=== PATIENT | female | born 1975 | race African-American/Black ===

== ENCOUNTER 2019-01-13 12:57 | Emergency (ER) | payer OTHER ==
[2019-01-13 13:10] VITALS: BP 142/87; PULSE 78; TEMP 97.7; BMI 38.4
--- NOTE | 2019-01-13 13:21 | PDOC ---
History of Present Illness - General Chief Complaint: Pain Stated Complaint: INJURY Time Seen by Provider: 01/13/19 13:07 History Source: Patient Exam Limitations: No Limitations - History of Present Illness Initial Comments: 01/13/19 13:23 HISTORY OF PRESENT ILLNESS: 43-year-old woman denies medical history of presents emergency department for evaluation of pain in her right forearm after lifting a patient in bed. 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 Patient describes the pain as a cramping feeling and is unable to rate the pain. No recent travel or sick contacts. PAST MEDICAL HISTORY: Denies past medical history SURGICAL HISTORY: Denies ALLERGIES: No known drug allergies REVIEW OF SYSTEMS General/Constitutional: Denies fever or chills. Denies weakness, weight change. HEENT: Denies change in vision. Denies ear pain or discharge. Denies sore throat. Cardiovascular: Denies chest pain or shortness of breath. Respiratory: Denies cough, wheezing, or hemoptysis. Gastrointestinal: Denies nausea, vomiting, diarrhea or constipation. Denies rectal bleeding. Genitourinary: Denies dysuria, frequency, or change in urination. Musculoskeletal: Denies joint or muscle swelling or pain. Denies neck or back pain. Skin and breasts: Denies rash or easy bruising. Neurologic: Denies headache, vertigo, loss of consciousness, or loss of sensation. Psychiatric: Denies depression or anxiety. Endocrine: Denies increased thirst. Denies abnormal weight change. Hematologic/Lymphatic: Denies anemia, easy bleeding, or history of blood clots. Allergic/Immunologic: Denies hives or skin allergy. Denies latex allergy. PHYSICAL EXAM General Appearance: Well-appearing, appropriately dressed. No apparent distress , no intoxication. Respiratory/Chest: Lungs CTAB. No shortness of breath, chest tenderness, respiratory distress, accessory muscle use. No crackles, rales, rhonchi, stridor , wheezing, dullness Cardiovascular: RRR. S1, S2. No JVD, murmur, bradycardia, tachycardia. Musculoskeletal/Extremities: Normal inspection. FROM of all extremities, normal capillary refill. Pelvis Stable. No CVA tenderness. No tenderness to extremities, pedal edema, swelling, erythema or deformity. Palpable muscle spasm present in the dorsum of the right forearm. NVI. Integumentary: Appropriate color, dry, warm. No cyanosis, erythema, jaundice or rash Past History - Past Medical History Allergies/Adverse Reactions: Allergies Allergy/AdvReac Type Severity Reaction Status Date / Time No Known Allergies Allergy Verified 01/13/19 13:06 Home Medications: Ambulatory Orders Methocarbamol [Robaxin -] 500 mg PO TID #21 tablet 01/13/19 COPD: No HTN: Yes - Suicide/Smoking/Psychosocial Hx Smoking History: Never smoked *Physical Exam - Vital Signs Last Vital Signs Temp Pulse Resp BP Pulse Ox 97.7 F 78 18 142/87 100 01/13/19 13:04 01/13/19 13:04 01/13/19 13:04 01/13/19 13:04 01/13/19 13:04 Medical Decision Making - Medical Decision Making 01/13/19 13:23 A/P: 43-year-old woman with muscle spasm in the right forearm after pulling the patient up in bed Patient is requesting to go back to work presently. I was in the prescription to her preferred pharmacy instruct patient to take Naprosyn for pain. Portions of this note have been documented using voice recognition software. As a result, errors may occur in the daub color mixer process. Effort has been made to correct all grammatical and daub color mixer error, but some may have been missed. *DC/Admit/Observation/Transfer Diagnosis at time of Disposition: Muscle spasm - Discharge Dispostion Disposition: HOME Condition at time of disposition: Stable Decision to Admit order: No - Prescriptions Prescriptions: Methocarbamol [Robaxin -] 500 mg PO TID #21 tablet - Referrals Referrals: Margarita Fay [Primary Care Provider] - - Patient Instructions Additional Instructions: Rest, no heavy lifting or exercise until pain is resolved Hot soaks to affected area as often as possible/hot showers or Jacuzzis No massage or therapy until spasm is gone Continue naproxen 2-220 mg tablets every 12 hours for the next 3 days then as needed for pain and swelling Robaxin 500mg every 8 hours as needed for spasm If not significant improvement within 24 hours with medication and rest regime, followup with private physician for change in medications and /or therapy. - Post Discharge Activity
== END 2019-01-13 13:36 | disposition home or self-care (01) ==
LOC: JER 12:57
DX: S59.811A Other specified injuries right forearm, initial encounter (principal); M62.838 Other muscle spasm; X50.9XXA Other and unspecified overexertion or strenuous movements or postures, initial encounter; Y93.F2 Activity, caregiving, lifting; Y92.122 Bedroom in nursing home as the place of occurrence of the external cause; Y99.0 Civilian activity done for income or pay
CPT/HCPCS: 99281-25

== ENCOUNTER 2019-05-03 21:21 | Emergency (ER) | payer OTHER ==
[2019-05-03 21:26] VITALS: BMI 36.9
[2019-05-03] MEDS ORDERED: SODIUM CHLORIDE 0.9% 500 ML INFUS.BAG IV ONE (21:56)
[2019-05-03] MEDS ORDERED: ONDANSETRON 4 MG/2 ML VIAL IVPUSH ONE (21:56)
[2019-05-03] MEDS ORDERED: MAG HYDROX/AL HYDROX/SIMETH 30 ML UNIT-DOSE CUP PO ONE (21:57)
[2019-05-03] MEDS ORDERED: FAMOTIDINE 20 MG/50 ML IVPB 20 MG/50 ML MG IVPB ONE ×2 (21:57→22:11)
[2019-05-03] MEDS ORDERED: ACETAMINOPHEN 1000 MG/100 ML VIAL (NON FORMULARY) IVPB ONE (21:57)
--- NOTE | 2019-05-03 21:59 | PDOC ---
Documentation entered by Santiago Chaparro SCRIBE, acting as scribe for Rosmery Ruby MD. Rosmery Ruby MD: This documentation has been prepared by the Shankar haji Nirvannie, SCRIBE, under my direction and personally reviewed by me in its entirety. I confirm that the documentation accurately reflects all work, treatment, procedures, and medical decision making performed by me. History of Present Illness - General Chief Complaint: Lightheaded Stated Complaint: DIZZINESS Time Seen by Provider: 05/03/19 21:43 History Source: Patient Exam Limitations: No Limitations - History of Present Illness Initial Comments: 05/03/19 22:41 [id number] with significant past medical history of hypertension who presents to the ED with sudden onset nausea without emesis, burping, and dizziness approximately 1 hour prior to arrival. 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 She notes attempting to drink some ruchi tea and sitting down, without relief, prompting her arrival to the ED. Patient notes an associated intermittent nonproductive cough, nasal congestion, and intermittent sinus pressure for the past week. She notes similar symptoms in the past at which time she was diagnosed with dehydration and symptoms were resolved with Mylanta and IV fluids. Patient is up to date with her flu shot. She denies any visual or hearing disturbances. Denies fever, chills, chest pain , SOB, palpitations, dizziness, weakness, V, D, bladder and bowel problems, leg swelling, No sick contacts or travel. No new changes in medications. Denies any chance of being . Allergies: None Past Medical History: Hypertension Social history: Lives with family. No tobacco, ETOH or drug use. Surgical history: None reported. Meds: as documented in EMR PMD: Dr. Fay Past History - Past Medical History Allergies/Adverse Reactions: Allergies Allergy/AdvReac Type Severity Reaction Status Date / Time No Known Allergies Allergy Verified 05/03/19 21:25 Home Medications: Ambulatory Orders Methocarbamol [Robaxin -] 500 mg PO TID #21 tablet 01/13/19 Ondansetron [Zofran *Odt*] 4 mg SL TID PRN #9 od.tablet 05/03/19 Meclizine HCl [Antivert -] 25 mg PO QID #28 tablet 05/04/19 COPD: No HTN: Yes - Psycho Social/Smoking Cessation Hx Smoking History: Never smoked Review of Systems - Review of Systems Able to Perform ROS?: Yes Comments:: 05/03/19 22:47 Constitutional: no fevers or chills. HEENT: no headache or dizziness. +congestion. No visual/hearing disturbances. CVS: no cp or syncope. Resp: no sob. No cough. Gastrointestinal: +Increased burping. +Nausea. no vomiting. Genitourinary: no urinary sx, hematuria. MUSCULOSKELETAL: No joint pain and swelling. No neck or back pain. SKIN: no redness or skin changes, no discharge, no rash. No wounds. Hematologic: no easy bruising/bleeding. NEUROLOGIC: +Dizziness. No headache, LOC or altered mental status. No weakness, numbness or tingling. Psych: no anxiety or depression Allergic/Immunologic: no allergies All other systems reviewed and negative, or as documented in HPI. *Physical Exam - Vital Signs Last Vital Signs Temp Pulse Resp BP Pulse Ox 97.6 F 88 18 153/82 100 05/03/19 21:24 05/03/19 21:24 05/03/19 21:24 05/03/19 21:24 05/03/19 21:24 - Physical Exam 05/03/19 22:47 General: Well appearing, awake and alert, NAD. HEENT: NCAT, PERRL, EOMI, clear conjunctiva, anicteric, moist mucous membranes , clear oropharynx, no oral lesions. Neck: neck supple, FROM Resp: CTAB, normal and even respirations, no respiratory distress CVS: RRR, no murmurs, 2+ peripheral pulses throughout, no peripheral edema Abdomen: +Obese. soft, NTND, no rebound or guarding. No CVAT. Back: nontender, normal inspection and ROM MSK: no edema, DIAZ x4, ROM intact. No clubbing or cyanosis. normal bulk and tone. Extremities: no calf tenderness Neuro: alert, oriented appropriately; no focal neurologic deficits Skin: warm and well perfused, cap refill <2 sec, normal color Heart Score/ECG Review #1 ECG reviewed & interpreted by me at: 22:50 General ECG Interpretation: Sinus Rhythm, Normal Rate, Normal Intervals Compared to previous ECG there are: Previous ECG unavail 05/03/19 23:06 EKG normal sinus rhythm 81 bpm, no interval abnormalities, narrow QRS, ST and T wave segments and morphology normal. Nonspecific T wave abnormalities 05/03/19 23:06 ED Treatment Course - LABORATORY CBC & Chemistry Diagram: 05/03/19 22:40 05/03/19 22:40 - RADIOLOGY Radiology Studies Ordered: Category Date Time Status CHEST X-RAY PORTABLE* [RAD] Stat Radiology 05/03/19 21:55 Ordered Medical Decision Making - Medical Decision Making 05/03/19 21:58 Vital Signs Temp Pulse Resp BP Pulse Ox 97.6 F 88 18 153/82 100 05/03/19 21:24 05/03/19 21:24 05/03/19 21:24 05/03/19 21:24 05/03/19 21:24 VS reviewed wnl. ddx. vertigo, viral syndrome, pna. influenza. gastritis, PUD, GERD, dehydration , anemia. unlikely polysomnograph tech pathology. neuro intact. no cp or sob. actively nauseous. abdomen soft nontender, obese, +burping Patient is given analgesia, Zofran, Maalox, Pepcid and IV fluids will reassess. labs/lytes, cr, lipase, flu test 05/03/19 Laboratory results are within normal limits, normal H/H no evidence of anemia, lipase and electrolytes/creatinine also within normal limits unlikely to be hepatitis or pancreatitis. Flu is negative. 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 Pt to be discharged in stable condition. Patient made aware of clinical impression, treatment recommendations and disposition plan, return precautions discussed (including but not limited to new or persistent/worsening symptoms, pain, fevers, or signs of infection, chest pain, respiratory distress, inability to tolerate oral intake, dehydration, syncope, or neurologic changes) . Follow up with PMD as recommended, follow up information provided, take medications as instructed for duration of time. continue with supportive care, avoid triggers and precipitants. All questions answered to patient's satisfaction and expressed understanding and comfort with this. At the time of discharge, the patient is alert, clinically improved, tolerating po and verbalizes understanding of instructions, satisfied with the care received and felt comfortable with the plan. Patient does not suffer from an acute life- threatening medical condition at this time and is safe for outpatient follow- up. 05/03/19 23:45 Discharge - Discharge Information Problems reviewed: Yes Clinical Impression/Diagnosis: Burping, Nausea, Dizziness, URI (upper respiratory infection) Condition: Improved Disposition: HOME - Admission No - Additional Discharge Information Prescriptions: Meclizine HCl [Antivert -] 25 mg PO QID #28 tablet Ondansetron [Zofran *Odt*] 4 mg SL TID PRN #9 od.tablet PRN Reason: nausea vomiting - Follow up/Referral Referrals: Margarita Fay [Primary Care Provider] - - Patient Discharge Instructions Patient Printed Discharge Instructions: DI for Viral Upper Respiratory Infection -- Adult, DI for Nausea -- Adult, DI for Vertigo Additional Instructions: 1) Please follow-up with your primary care doctor in the next 1-2 days. Please call tomorrow for for any urgent issues. 2) You were given a copy of the tests performed today. Please bring the results with you and review them with your primary care doctor. Your laboratory / imaging results were normal, including flu test and negative chest x ray for pneumonia,so this is still likely viral syndrome. 3) If you have any worsening of symptoms or any other concerns please return to the ED immediately. Return if worsening symptoms including fevers, headache, vomiting, visual or hearing disturbances, abdominal pain, chest pain, shortness of breath, syncope, dehydration, inability to take things by mouth/vomiting, altered mental status, or worsening concerning symptoms. 4) Please continue taking your home medications as directed. your medications on discharge include zofran every 8 hours as needed for nausea .do not drink alcohol with your medications. Stay well hydrated and rest adequately. wash hands adequately to minimize spread of infection use salt water gargles for the coughing, you can use topical cough drops over the counter for your symptoms, cool air or humidifier. - Post Discharge Activity Work/Back to School Note: Back to Work
[2019-05-03] MEDS ORDERED: ACETAMINOPHEN INJECTION 100 ML IVPB ONE (22:11)
[2019-05-03] MEDS ORDERED: ONDANSETRON 4 MG/2 ML VIAL ONE (22:11)
[2019-05-03] MEDS ORDERED: MAG HYDROX/AL HYDROX/SIMETH 30 ML UNIT-DOSE CUP ONE (22:11)
[2019-05-03 22:48] LABS: BASO % 0.8 % (0-2.0); EOS % 1.1 % (0-4.5); HEMATOCRIT 40.1 % (32.4-45.2); HEMOGLOBIN 13.3 GM/dL (10.7-15.3); LYMPH % 40.2 % (8-40); MCH 30.1 pg (25.7-33.7); MCHC 33.1 g/dl (32.0-36.0); MEAN PLT VOLUME 8.9 fl (7.5-11.1); MONO % 4.8 % (3.8-10.2); NEUT % 53.1 % (42.8-82.8); PLATELET COUNT 321 K/MM3 (134-434); RDW 13.4 % (11.6-15.6); WHITE BLOOD COUNT 8.2 K/mm3 (4.0-10.0)
[2019-05-03 22:55] VITALS: TEMP 98.1
[2019-05-03 23:25] LABS: ALBUMIN 3.8 g/dl (3.4-5.0); BILIRUBIN,TOTAL 0.6 mg/dL (0.2-1); BLOOD UREA NITROGEN 14.5 mg/dL (7-18); CALCIUM 8.7 mg/dL (8.5-10.1); CREATININE 0.8 mg/dL (0.55-1.3); POTASSIUM 3.9 mmol/L (3.5-5.1); TOT PROT 7.5 g/dl (6.4-8.2)
[2019-05-03] MEDS ORDERED: MECLIZINE HCL 25 MG TABLET (FP) PO ONE (23:48)
[2019-05-03] MEDS ORDERED: MECLIZINE HCL 25 MG TABLET (FP) ONE (23:52)
[2019-05-03 23:59] VITALS: BP 120/74; PULSE 72
[2019-05-04] MEDS ORDERED: METOCLOPRAMIDE HCL INJECTION 10 MG/2 ML VIAL IVPUSH ONE (00:42)
[2019-05-04] MEDS ORDERED: METOCLOPRAMIDE HCL INJECTION 10 MG/2 ML VIAL ONE (00:43)
--- NOTE | 2019-05-04 14:10 | EKG ---
Test Reason : Blood Pressure : / mmHG Vent. Rate : 081 BPM Atrial Rate : 081 BPM P-R Int : 172 ms QRS Dur : 078 ms QT Int : 404 ms P-R-T Axes : 056 006 021 degrees QTc Int : 469 ms NORMAL SINUS RHYTHM POSSIBLE LEFT ATRIAL ENLARGEMENT LOW VOLTAGE QRS BORDERLINE ECG NO PREVIOUS ECGS AVAILABLE Confirmed by JOSLYN BARNES MD ([id number]) on 05/04/2019 2:09:45 PM Referred By: Confirmed By:JOSLYN BARNES MD
== END 2019-05-04 01:58 | disposition home or self-care (01) ==
LOC: JER 21:21
PROC: 3E033GC Introduction of Other Therapeutic Substance into Peripheral Vein, Percutaneous Approach (ICD-10-PCS; principal; 2019-05-03)
PROC: 3E033GC Introduction of Other Therapeutic Substance into Peripheral Vein, Percutaneous Approach (ICD-10-PCS; 2019-05-03)
PROC: 3E033GC Introduction of Other Therapeutic Substance into Peripheral Vein, Percutaneous Approach (ICD-10-PCS; 2019-05-03)
PROC: 3E033NZ Introduction of Analgesics, Hypnotics, Sedatives into Peripheral Vein, Percutaneous Approach (ICD-10-PCS; 2019-05-03)
DX: J06.9 Acute upper respiratory infection, unspecified (principal); B97.89 Other viral agents as the cause of diseases classified elsewhere; R42 Dizziness and giddiness; R11.0 Nausea; R14.2 Eructation
CPT/HCPCS: 36415; 71045-TC-FY; 80053; 83690; 85025; 87804; 93005; 93010; 99284-25; J0131